=== PATIENT | male | born 1995 | race Caucasian/White ===

== ENCOUNTER 2017-03-18 18:19 | Inpatient (IN) | payer BC ==
[~2017-03-18] VITALS: Ht 193 cm; Wt 104.3 kg
[2017-03-18] MEDS ORDERED: ACETAMINOPHEN 325 MG TAB PO ONE (18:45)
[2017-03-18 19:32] LABS: Basophils # (auto) 0 uL; Basophils % (auto) 0.1 % (0.0-2.0); DEFINITIVE VIEW TRANSMISSION; Eosinophils # (auto) 0 uL; Hematocrit 53.7 % (41.0-53.0); Lymphocytes # (auto) 1.8 uL; Mean Corpuscular Hemoglobin 28.5 pg (28.0-32.0); Mean Corpuscular Hgb Conc. 33.6 g/dL (32.0-36.0); Mean Corpuscular Volume 84.8 fL (80.0-100.0); Mean Platelet Volume 7.3 fL (7.4-10.4); Monocytes # (auto) 1.8 uL; Monocytes % (auto) 9.1 % (0.0-12.0); Neutrophils # (auto) 16.1 uL; Neutrophils % (auto) 81.8 % (37.0-80.0); Platelet Count (auto) 451 10^3/uL (140-450); Red Cell Distribution Width 12.9 % (11.6-16.0); White Blood Cell 19.6 10^3/uL (4.4-10.8)
[2017-03-18 19:41] LABS: Urine Bilirubin Negative (Negative); Urine Blood Negative /uL (Negative); Urine Color Yellow (Yellow); Urine Glucose Normal (Normal); Urine Ketone TRACE (Negative); Urine Mucus MODERATE (None Seen); Urine Nitrite Negative (Negative); Urine RBC <1 /hpf (0 - 3); Urine Squamous Epithelial Cell FEW /hpf (<5); Urine pH 5.5 (5.0-8.0)
[2017-03-18 19:49] LABS: Albumin 4.6 g/dL (3.4-5.0); Alkaline Phosphatase 94 U/L (45-117); Anion Gap 14 (5-15); Aspartate Aminotransferase 20 U/L (15-37); BUN/Creatinine Ratio 13.5; Bilirubin, Total 1.4 mg/dL (0.2-1.0); Blood Urea Nitrogen 21 mg/dL (7-18); Calcium 9.5 mg/dL (8.5-10.1); Carbon Dioxide 21 mmol/L (21-32); Chloride 100 mmol/L (98-107); GFR African American 72 mL/min; GFR Non-African American 59 mL/min; Glucose 144 mg/dL (74-106); Potassium 3.8 mmol/L (3.5-5.1); Sodium 135 mmol/L (136-145); Total Protein 9.4 g/dL (6.4-8.2)
[2017-03-18 21:25] LABS: Lactic Acid w/Reflex 3.1 mmol/L (0.4-2.0)
[2017-03-18 21:32] LABS: REFLEX LACTIC ACID YES OR NO YES
[2017-03-19] MEDS ORDERED: cefTRIAXone 1GM/50ML D5W 50 ML IV ONE (00:30)
[2017-03-19] MEDS ORDERED: SODIUM CHLORIDE 0.9% 2,000 ML IV ONE (00:30)
[2017-03-19] MEDS ORDERED: metroNIDAZOLE 500MG/100ML 100 ML IV ONE ×2 (00:30→09:15)
[2017-03-19] MEDS ORDERED: ACETAMINOPHEN 325 MG TAB PO PRN (09:15)
[2017-03-19] MEDS ORDERED: MORPHINE SULF INJ 2 MG/ML SYRINGE 1ML IV PRN ×2 (09:15)
[2017-03-19] MEDS ORDERED: ONDANSETRON HCL 4 MG/2 ML VIAL IV PRN (09:15)
[2017-03-19] MEDS ORDERED: NITROGLYCERIN 0.4 MG SL TAB SL PRN (09:15)
[2017-03-19] MEDS ORDERED: HYDROcodone-ACET 5/325MG TAB PO PRN (09:15)
[2017-03-19] MEDS ORDERED: TEMAZEPAM 15 MG CAP PO PRN (09:15)
[2017-03-19] MEDS ORDERED: DEXTROSE (50%) 50ML SYRG IV PRN (09:15)
[2017-03-19] MEDS: SODIUM CHLORIDE 0.9% 1,000 ML IV SCH ×2 (09:40→17:59)
[2017-03-19] MEDS: FAMOTIDINE 20 MG TAB PO SCH ×2 (10:20→23:03)
[2017-03-19] MEDS: MULTIPLE VITAMIN TAB PO SCH (10:20)
[2017-03-19] MEDS: InsuLIN REG 1unit/0.01ml Soln (100units/ml) SC SCH ×3 (11:30→22:00)
[2017-03-19] MEDS: ACCU-CHEK COMFORT CURVE STRIP VI SCH ×3 (12:53→22:00)
[2017-03-19 13:00] VITALS: BP 144/83
[2017-03-19] MEDS: metroNIDAZOLE 500MG/100ML 100 ML IV SCH ×2 (15:41→23:03)
[2017-03-19 17:00] VITALS: BP 148/90
[2017-03-19 22:19] VITALS: BP 159/87
[2017-03-20] MEDS: SODIUM CHLORIDE 0.9% 1,000 ML IV SCH ×3 (01:54→17:47)
[2017-03-20 05:49] LABS: Basophils # (auto) 0 uL; Basophils % (auto) 0.4 % (0.0-2.0); Eosinophils # (auto) 0.1 uL; Eosinophils % (auto) 2.3 % (0.0-7.0); Hematocrit 41.7 % (41.0-53.0); Hemoglobin 14.1 g/dL (13.5-17.5); Lymphocytes # (auto) 1.9 uL; Lymphocytes % (auto) 31.3 % (10.0-50.0); Mean Corpuscular Hemoglobin 28.7 pg (28.0-32.0); Mean Corpuscular Hgb Conc. 33.7 g/dL (32.0-36.0); Mean Platelet Volume 6.9 fL (7.4-10.4); Monocytes # (auto) 0.7 uL; Monocytes % (auto) 10.9 % (0.0-12.0); Neutrophils # (auto) 3.4 uL; Neutrophils % (auto) 55.1 % (37.0-80.0); Platelet Count (auto) 285 10^3/uL (140-450); Red Cell Distribution Width 13.1 % (11.6-16.0); White Blood Cell 6.2 10^3/uL (4.4-10.8)
[2017-03-20 06:00] VITALS: BP 137/83
[2017-03-20] MEDS: metroNIDAZOLE 500MG/100ML 100 ML IV SCH ×3 (06:19→21:31)
[2017-03-20 06:24] LABS: Albumin 3.3 g/dL (3.4-5.0); Bilirubin, Total 0.5 mg/dL (0.2-1.0); Calcium 8.3 mg/dL (8.5-10.1); Potassium 3.8 mmol/L (3.5-5.1); Total Protein 6.7 g/dL (6.4-8.2)
[2017-03-20] MEDS: InsuLIN REG 1unit/0.01ml Soln (100units/ml) SC SCH ×4 (06:39→21:35)
[2017-03-20] MEDS: ACCU-CHEK COMFORT CURVE STRIP VI SCH ×4 (06:39→21:35)
[2017-03-20] MEDS: cefTRIAXone 1GM/50ML D5W 50 ML IV SCH (08:47)
[2017-03-20 09:00] VITALS: BP 123/72
[2017-03-20] MEDS: MULTIPLE VITAMIN TAB PO SCH (09:56)
[2017-03-20] MEDS: FAMOTIDINE 20 MG TAB PO SCH ×2 (09:57→21:30)
[2017-03-20 13:00] VITALS: BP 141/77
[2017-03-20 17:00] VITALS: BP 134/76
[2017-03-20 22:00] VITALS: BP 146/77
[2017-03-21 04:51] VITALS: BP 112/61
[2017-03-21] MEDS: ACCU-CHEK COMFORT CURVE STRIP VI SCH ×2 (05:44→11:30)
[2017-03-21] MEDS: metroNIDAZOLE 500MG/100ML 100 ML IV SCH (05:44)
[2017-03-21] MEDS: InsuLIN REG 1unit/0.01ml Soln (100units/ml) SC SCH ×2 (05:44→11:30)
[2017-03-21] MEDS: SODIUM CHLORIDE 0.9% 1,000 ML IV SCH ×2 (05:44→11:14)
[2017-03-21] MEDS: MULTIPLE VITAMIN TAB PO SCH (08:50)
[2017-03-21] MEDS: FAMOTIDINE 20 MG TAB PO SCH (08:50)
[2017-03-21] MEDS: cefTRIAXone 1GM/50ML D5W 50 ML IV SCH (08:51)
[2017-03-21 09:00] VITALS: BP 147/80
== END 2017-03-21 13:09 | DRG 872 ==
LOC: ER 18:26 → TELE 18:27 → TELE-EAST 03-19 11:03
PROVIDERS: ADMIT Internal Medicine; ATTEND Internal Medicine Pulmonary Disease
DX: A41.9 Sepsis, unspecified organism (principal); E87.1 Hypo-osmolality and hyponatremia; D75.1 Secondary polycythemia; E86.0 Dehydration; R73.9 Hyperglycemia, unspecified; K52.9 Noninfective gastroenteritis and colitis, unspecified; R79.89 Other specified abnormal findings of blood chemistry; N18.3 Chronic kidney disease, stage 3 (moderate); Z82.3 Family history of stroke; Z88.1 Allergy status to other antibiotic agents
CPT/HCPCS: 36415; 74176; 80053; 81001; 82962; 83036; 83605; 83690; 84484; 85025; 87040; 87045; 87493; 87899; 94761; 96365; 96366; 96367; J0696; J3490